=== PATIENT | female | born 1965 | race Two or more races ===

== ENCOUNTER 2018-01-11 09:17 | Outpatient (CLI) | payer OTHER | END 2018-01-11 09:26 | disposition home or self-care (01) | LOC: RAD 501 09:17 | DX: M25.561 Pain in right knee (principal); M25.572 Pain in left ankle and joints of left foot; M25.511 Pain in right shoulder ==

== ENCOUNTER 2018-02-01 12:52 | Outpatient (CLI) | payer OTHER | END 2018-02-01 13:35 | disposition home or self-care (01) | LOC: NUCLEAR 12:52 | DX: M81.0 Age-related osteoporosis without current pathological fracture (principal) ==

== ENCOUNTER 2018-03-22 11:33 | Outpatient (CLI) | payer OTHER | END 2018-03-22 13:28 | disposition home or self-care (01) | LOC: SONOGRAMA 11:33 | DX: M75.41 Impingement syndrome of right shoulder (principal) ==

== ENCOUNTER 2018-12-20 11:06 | Outpatient (CLI) | payer OTHER | END 2018-12-20 13:08 | disposition home or self-care (01) | LOC: SONOGRAMA 11:06 → MAMO-SONO 11:45 → SONOGRAMA 13:08 | DX: M77.11 Lateral epicondylitis, right elbow (principal) ==